=== PATIENT | male | born 1995 | race Caucasian/White ===

== ENCOUNTER 2017-12-09 09:06 | Emergency (ER) | payer OTHER ==
[~2017-12-09] VITALS: Ht 175.3 cm; Wt 73.6 kg
[2017-12-09 09:09] VITALS: BP 147/120
[2017-12-09] MEDS ORDERED: BACTRIM,SEPT1 TABLET PO (11:25)
== END 2017-12-09 11:33 | disposition home or self-care (01) ==
LOC: EME 09:06
PROC: 0H9DXZZ Drainage of Right Lower Arm Skin, External Approach (ICD-10-PCS; principal; 2017-12-09)
DX: L02.413 Cutaneous abscess of right upper limb (principal); F11.10 Opioid abuse, uncomplicated
CPT/HCPCS: 87070; 87075; 87076; 87205; 99281; 99284

== ENCOUNTER 2017-12-29 17:13 | Emergency (ER) | payer OTHER ==
[~2017-12-29] VITALS: Ht 172.7 cm; Wt 74.8 kg
[~2017-12-29 17:13] MED LIST: BACTRIM,SEPT1 TABLET PO
[2017-12-29] MEDS ORDERED: MOTRIN600 MG PO (19:38)
[2017-12-29 19:55] VITALS: BP 126/64
== END 2017-12-29 19:55 | disposition home or self-care (01) ==
LOC: EME 17:13
DX: S00.83XA Contusion of other part of head, initial encounter (principal); F17.200 Nicotine dependence, unspecified, uncomplicated
CPT/HCPCS: 70110; 99281; 99283

== ENCOUNTER 2018-04-16 20:25 | Emergency (ER) | payer OTHER ==
[~2018-04-16] VITALS: Ht 172.7 cm; Wt 72.2 kg
[~2018-04-16 20:25] MED LIST changes: +MOTRIN600 MG PO
[2018-04-16 23:12] LABS: BASOPHIL (%) 0.6 % (0-1); EOSINOPHIL (%) 4.4 % (0-5); EOSINOPHIL COUNT 0.3 K/uL (0-0.3); HEMATOCRIT 38.4 % (38.0-50.0); HEMOGLOBIN 13.4 G/DL (12.5-16.6); IMMATURE GRANULOCYTE (%) 0.1 % (0.0-0.7); LYMPHOCYTE (%) 40.7 % (15-42); LYMPHOCYTE COUNT 2.8 K/uL (1.0-2.8); MCHC 34.9 G/DL (30.0-36.0); MCV 88.9 FL (86-99); MONOCYTE (%) 13.5 % (3-12); MONOCYTE COUNT 0.9 K/uL (0-0.8); NEUTROPHIL (%) 40.7 % (45-76); NEUTROPHIL COUNT 2.8 K/uL (1.8-6.4); PLATELET COUNT 238 K/uL (156-360); RBC DIS.WIDTH-CV 13.5 % (11.8-14.6); RBC DIS.WIDTH-SD 44.1 % (39-53); RED BLOOD COUNT 4.32 M/uL (4.00-5.50); WHITE BLOOD COUNT 6.8 K/uL (4.1-10.2)
[2018-04-16 23:19] LABS: PTT 33.7 SEC (25-37)
[2018-04-16 23:22] LABS: ALBUMIN 3.8 g/dL (3.2-4.8); CHLORIDE 103 mEq/L (99-109); POTASSIUM 3.8 mEq/L (3.7-5.4); SODIUM 140 mEq/L (136-147)
[2018-04-16 23:24] LABS: GLUCOSE 121 mg/dL (70-99); TOTAL PROTEIN 6.4 g/dL (6.4-8.3)
[2018-04-16 23:28] LABS: ALKALINE PHOSPHATASE 69 IU/L (3-129); CREATININE 1.1 mg/dL (0.6-1.3); GFR ESTIMATE (CALCULATED) > 59 mL/min/ (58.99-99999)
[2018-04-16 23:29] LABS: AST (GOT) 33 IU/L (2-34); DIRECT BILIRUBIN 0.5 mg/dL (0.0-0.3)
[2018-04-16 23:30] LABS: UREA NITROGEN (BUN) 18 mg/dL (9-23)
[2018-04-16 23:31] LABS: SALICYLATE < 5.0 MG/DL (15-30)
[2018-04-16 23:32] LABS: ALT (GPT) 116 IU/L (3-49)
[2018-04-16 23:59] LABS: ACETAMINOPHEN (TYLENOL) < 10 mcg/mL (10-30)
[2018-04-17 00:55] VITALS: BP 105/90
[2018-04-20 10:31] LABS: HCV RNA (LOG IU/mL) 1.78 (())
== END 2018-04-17 00:55 | disposition home or self-care (01) ==
LOC: EME 20:25
PROVIDERS: Emergency Medicine
DX: B19.20 Unspecified viral hepatitis C without hepatic coma (principal); R74.0 Nonspecific elevation of levels of transaminase and lactic acid dehydrogenase [LDH]; E80.6 Other disorders of bilirubin metabolism; F11.11 Opioid abuse, in remission; F17.200 Nicotine dependence, unspecified, uncomplicated
CPT/HCPCS: 76705; 80053; 82248; 85025; 85610; 85730; 87522 90; 99281; 99285; G0480

== ENCOUNTER 2018-05-09 12:07 | Emergency (ER) | payer OTHER ==
[~2018-05-09] VITALS: Ht 172.7 cm; Wt 67.0 kg
[2018-05-09 13:54] LABS: HEMATOCRIT 39.4 % (38.0-50.0); HEMOGLOBIN 13.9 G/DL (12.5-16.6); MCH 30.6 PG (29.0-34.0); MCHC 35.3 G/DL (30.0-36.0); MCV 86.8 FL (86-99); PLATELET COUNT 193 K/uL (156-360); RBC DIS.WIDTH-CV 12.6 % (11.8-14.6); RBC DIS.WIDTH-SD 40.2 % (39-53); RED BLOOD COUNT 4.54 M/uL (4.00-5.50); WHITE BLOOD COUNT 9.7 K/uL (4.1-10.2)
[2018-05-09 14:02] LABS: CHLORIDE 102 mEq/L (99-109); POTASSIUM 3.7 mEq/L (3.7-5.4); SODIUM 139 mEq/L (136-147)
[2018-05-09 14:04] LABS: GLUCOSE 76 mg/dL (70-99)
[2018-05-09 14:07] LABS: SERUM ETHYL ALCOHOL < 10 mg/dL
[2018-05-09 14:08] LABS: CREATININE 1.3 mg/dL (0.6-1.3); GFR ESTIMATE (CALCULATED) > 59 mL/min/ (58.99-99999)
[2018-05-09 14:09] LABS: UREA NITROGEN (BUN) 29 mg/dL (9-23)
[2018-05-09 16:26] LABS: CREATINE KINASE 224 IU/L (1-294)
[2018-05-10 00:19] LABS: AMPHETAMINE PRESUMPTIVE POSITIVE (500 ng/mL); BARBITURATES NEGATIVE (200 ng/mL); BENZODIAZEPINES PRESUMPTIVE POSITIVE (150 ng/mL); BUPRENORPHINE NEGATIVE (10 ng/mL); COCAINE NEGATIVE (150 ng/mL); METHADONE NEGATIVE (200 ng/mL); METHAMPHETAMINE NEGATIVE (500 ng/mL); OPIATES (MORPHINE) NEGATIVE (100 ng/mL); OXYCODONE NEGATIVE (100 ng/mL); PHENCYCLIDINE NEGATIVE (25 ng/mL); PROPOXYPHENE NEGATIVE (300 ng/mL); THC CANNABINOIDS NEGATIVE (50 ng/mL); TRICYCLIC ANTIDEPRESSANTS NEGATIVE (300 ng/mL)
[2018-05-10 02:09] LABS: BENZODIAZEPINES, URINE SCREEN POSITIVE (200 ng/mL)
[2018-05-10 06:31] VITALS: BP 94/46
[2018-05-11] MEDS ORDERED: MULTI VITAMIN1 EACH PO (15:26)
[2018-05-11] MEDS ORDERED: SUBOXONE 12 MG1 EACH SL (15:32)
== END 2018-05-10 06:32 | disposition home or self-care (01) ==
LOC: EME 12:07
PROVIDERS: Emergency Medicine
DX: F15.10 Other stimulant abuse, uncomplicated (principal); R45.1 Restlessness and agitation; R00.2 Palpitations; F17.200 Nicotine dependence, unspecified, uncomplicated
CPT/HCPCS: 80048; 82550; 84999; 85027; 90837; 99281; 99285; G0480; J1200; J1630; J2060

== ENCOUNTER 2018-05-11 11:34 | Inpatient (IN) | payer OTHER ==
[~2018-05-11] VITALS: Ht 172.7 cm; Wt 71.3 kg
[2018-05-11 11:55] LABS: HEMATOCRIT 45.2 % (38.0-50.0); HEMOGLOBIN 15.5 G/DL (12.5-16.6); MCH 30.8 PG (29.0-34.0); MCHC 34.3 G/DL (30.0-36.0); MCV 89.7 FL (86-99); PLATELET COUNT 213 K/uL (156-360); RED BLOOD COUNT 5.04 M/uL (4.00-5.50); WHITE BLOOD COUNT 9.5 K/uL (4.1-10.2)
[2018-05-11 12:03] LABS: APPEARANCE CLEAR ((CLEAR)); BILIRUBIN NEGATIVE; BLOOD MODERATE; COLOR YELLOW ((YELLOW)); GLUCOSE (STRIP) NEGATIVE; KETONES NEGATIVE; LEUKOCYTES NEGATIVE; NITRITE NEGATIVE; PROTEIN (STRIP) NEGATIVE; SPECIFIC GRAVITY 1.015 (1.000-1.030)
[2018-05-11 12:08] LABS: BACTERIA NONE SEEN /HPF; EPITHELIAL CELLS NONE SEEN /HPF; MUCUS TRACE /LPF; RED BLOOD CELLS TNTC /HPF (0-5); UCUL ADDED? YES; WHITE BLOOD CELLS 0-5 /HPF (0-5)
[2018-05-11 12:10] LABS: COCAINE NEGATIVE (150 ng/mL); METHAMPHETAMINE PRESUMPTIVE POSITIVE (500 ng/mL); OPIATES (MORPHINE) NEGATIVE (100 ng/mL); PHENCYCLIDINE NEGATIVE (25 ng/mL); THC CANNABINOIDS NEGATIVE (50 ng/mL)
[2018-05-11 12:11] LABS: AMPHETAMINE PRESUMPTIVE POSITIVE (500 ng/mL); BARBITURATES NEGATIVE (200 ng/mL); BENZODIAZEPINES PRESUMPTIVE POSITIVE (150 ng/mL); BUPRENORPHINE NEGATIVE (10 ng/mL); METHADONE NEGATIVE (200 ng/mL); OXYCODONE NEGATIVE (100 ng/mL); PROPOXYPHENE NEGATIVE (300 ng/mL); TRICYCLIC ANTIDEPRESSANTS NEGATIVE (300 ng/mL)
[2018-05-11 12:11] LABS: ALBUMIN 4.3 g/dL (3.2-4.8); CHLORIDE 103 mEq/L (99-109); SODIUM 137 mEq/L (136-147)
[2018-05-11 12:13] LABS: TOTAL PROTEIN 7.3 g/dL (6.4-8.3)
[2018-05-11 12:15] LABS: TOTAL BILIRUBIN 0.6 mg/dL (0.0-1.0)
[2018-05-11 12:17] LABS: GFR ESTIMATE (CALCULATED) > 59 mL/min/ (58.99-99999); SERUM ETHYL ALCOHOL < 10 mg/dL
[2018-05-11 12:18] LABS: ALKALINE PHOSPHATASE 72 IU/L (3-129); AST (GOT) 365 IU/L (2-34); GLUCOSE 129 mg/dL (70-99); POTASSIUM 4.8 mEq/L (3.7-5.4)
[2018-05-11 12:19] LABS: UREA NITROGEN (BUN) 12 mg/dL (9-23)
[2018-05-11 12:20] LABS: SALICYLATE < 5.0 MG/DL (15-30); TROP-I INTERPRETATION NEGATIVE; TROPONIN-I < 0.01 ng/mL (0.0-0.30)
[2018-05-11 12:21] LABS: ACETAMINOPHEN (TYLENOL) < 10 mcg/mL (10-30); ALT (GPT) 672 IU/L (3-49)
[2018-05-11 12:35] LABS: CREATINE KINASE 3772 IU/L (1-294)
[2018-05-11 12:49] LABS: BENZODIAZEPINES, URINE SCREEN Negative (200 ng/mL)
[2018-05-11] MEDS ORDERED: MULTI VITAMIN1 EACH PO (15:26)
[2018-05-11] MEDS ORDERED: SUBOXONE 12 MG1 EACH SL (15:32)
[2018-05-11 16:40] VITALS: BP 128/70
[2018-05-11 20:01] VITALS: BP 121/60
[2018-05-12 00:11] VITALS: BP 115/56
[2018-05-12 04:50] VITALS: BP 123/67
[2018-05-12 06:06] LABS: ALBUMIN 3.3 G/DL (3.2-4.8); ALKALINE PHOSPHATASE 56 IU/L (3-129); ALT (GPT) 435 IU/L (3-49); AST (GOT) 214 IU/L (2-34); CHLORIDE 105 MEQ/L (99-109); CREATININE 0.9 MG/DL (0.6-1.3); DIRECT BILIRUBIN 0.1 mg/dL (0.0-0.3); GFR ESTIMATE (CALCULATED) > 59 mL/min/ (58.99-99999); SODIUM 138 MEQ/L (136-147); TOTAL BILIRUBIN 0.4 MG/DL (0.0-1.0); TOTAL PROTEIN 5.7 G/DL (6.4-8.3); UREA NITROGEN (BUN) 12 mg/dL (9-23)
[2018-05-12 06:10] LABS: GLUCOSE 86 mg/dL (70-99)
[2018-05-12 06:11] LABS: CREATINE KINASE 1195 IU/L (1-294); POTASSIUM 3.8 MEQ/L (3.7-5.4)
[2018-05-12 06:19] LABS: HEMATOCRIT 40.1 % (38.0-50.0); MCH 30.4 PG (29.0-34.0); MCHC 33.7 G/DL (30.0-36.0); MCV 90.3 FL (86-99); PLATELET COUNT 182 K/uL (156-360); RBC DIS.WIDTH-CV 12.9 % (11.8-14.6); RBC DIS.WIDTH-SD 42.5 % (39-53); RED BLOOD COUNT 4.44 M/uL (4.00-5.50); WHITE BLOOD COUNT 7.4 K/uL (4.1-10.2)
[2018-05-12 06:28] LABS: HEMOGLOBIN 13.5 G/DL (12.5-16.6)
[2018-05-12 07:43] VITALS: BP 118/67
[2018-05-12 10:14] LABS: HEPATITIS B SURFACE ANTIGEN Nonreactive
[2018-05-12 10:15] LABS: ANTI-HEPATITIS A VIRUS (IGM) Nonreactive
[2018-05-12 11:26] VITALS: BP 133/66
[2018-05-12 13:16] LABS: ANTI-HEPATITIS B CORE (IGM) REACTIVE; HEPATITIS C ANTIBODY REACTIVE
== END 2018-05-12 14:05 | disposition left against medical advice (07) | DRG 558 ==
LOC: EME → EDBD 11:34 → EME 11:34 → ENRESERV 15:15 → EDOF 15:15 → 4SOUTH 16:01
PROVIDERS: Emergency Medicine; Hospitalist
DX: M62.82 Rhabdomyolysis (principal); F15.10 Other stimulant abuse, uncomplicated; G24.9 Dystonia, unspecified; R74.0 Nonspecific elevation of levels of transaminase and lactic acid dehydrogenase [LDH]; R79.89 Other specified abnormal findings of blood chemistry; B19.20 Unspecified viral hepatitis C without hepatic coma; F17.200 Nicotine dependence, unspecified, uncomplicated; Z62.810 Personal history of physical and sexual abuse in childhood; Z59.0 Homelessness
CPT/HCPCS: 71045; 76705; 80048; 80053; 80074; 80076; 81003; 82550; 82550 91; 84484; 84999; 85027; 87086; 90839; 93005; 99281; 99285; G0378; G0480; J1200; J1644; J2060; J7030; J7040

== ENCOUNTER 2018-05-18 18:07 | Emergency (ER) | payer OTHER ==
[~2018-05-18] VITALS: Ht 172.7 cm; Wt 63.3 kg
[~2018-05-18 18:07] MED LIST changes: +MULTI VITAMIN1 EACH PO; +SUBOXONE 12 MG1 EACH SL
[2018-05-18 19:21] LABS: HEMATOCRIT 42.5 % (38.0-50.0); HEMOGLOBIN 14.9 G/DL (12.5-16.6); MCH 30.5 PG (29.0-34.0); MCHC 35.1 G/DL (30.0-36.0); MCV 86.9 FL (86-99); PLATELET COUNT 227 K/uL (156-360); RBC DIS.WIDTH-CV 12.8 % (11.8-14.6); RBC DIS.WIDTH-SD 40.6 % (39-53); RED BLOOD COUNT 4.89 M/uL (4.00-5.50); WHITE BLOOD COUNT 10.3 K/uL (4.1-10.2)
[2018-05-18 19:30] LABS: CHLORIDE 101 mEq/L (99-109); POTASSIUM 3.8 mEq/L (3.7-5.4); SODIUM 139 mEq/L (136-147)
[2018-05-18 19:31] LABS: GLUCOSE 126 mg/dL (70-99)
[2018-05-18 19:34] LABS: SERUM ETHYL ALCOHOL < 10 mg/dL
[2018-05-18 19:35] LABS: CREATININE 1.3 mg/dL (0.6-1.3); GFR ESTIMATE (CALCULATED) > 59 mL/min/ (58.99-99999)
[2018-05-18 19:38] LABS: UREA NITROGEN (BUN) 32 mg/dL (9-23)
[2018-05-19 07:08] VITALS: BP 113/58
== END 2018-05-19 07:09 | disposition home or self-care (01) ==
LOC: EME 18:07
PROVIDERS: Emergency Medicine Emergency Medical Services
DX: F15.20 Other stimulant dependence, uncomplicated (principal); R45.1 Restlessness and agitation; R45.6 Violent behavior; F22 Delusional disorders; F17.200 Nicotine dependence, unspecified, uncomplicated
CPT/HCPCS: 80048; 85027; 90839; 99281; 99284; G0480; J1630; J2060

== ENCOUNTER 2018-05-20 09:37 | Emergency (ER) | payer OTHER ==
[~2018-05-20] VITALS: Ht 172.7 cm; Wt 68.2 kg
[2018-05-20 10:13] LABS: HEMATOCRIT 42.4 % (38.0-50.0); HEMOGLOBIN 14.2 G/DL (12.5-16.6); MCH 30.3 PG (29.0-34.0); MCHC 33.5 G/DL (30.0-36.0); MCV 90.6 FL (86-99); PLATELET COUNT 191 K/uL (156-360); RBC DIS.WIDTH-CV 13.1 % (11.8-14.6); RED BLOOD COUNT 4.68 M/uL (4.00-5.50); WHITE BLOOD COUNT 6.4 K/uL (4.1-10.2)
[2018-05-20 10:24] LABS: ALBUMIN 3.9 g/dL (3.2-4.8); CHLORIDE 101 mEq/L (99-109); SODIUM 137 mEq/L (136-147)
[2018-05-20 10:26] LABS: GLUCOSE 111 mg/dL (70-99); POTASSIUM 4.6 mEq/L (3.7-5.4)
[2018-05-20 10:27] LABS: TOTAL PROTEIN 6.7 g/dL (6.4-8.3)
[2018-05-20 10:28] LABS: TOTAL BILIRUBIN 0.8 mg/dL (0.0-1.0)
[2018-05-20 10:29] LABS: SERUM ETHYL ALCOHOL < 10 mg/dL
[2018-05-20 10:30] LABS: ALKALINE PHOSPHATASE 84 IU/L (3-129); GFR ESTIMATE (CALCULATED) > 59 mL/min/ (58.99-99999)
[2018-05-20 10:31] LABS: UREA NITROGEN (BUN) 21 mg/dL (9-23)
[2018-05-20 10:32] LABS: AST (GOT) 519 IU/L (2-34)
[2018-05-20 10:34] LABS: ALT (GPT) 1279 IU/L (3-49)
[2018-05-20 11:23] LABS: ACETAMINOPHEN (TYLENOL) < 10 mcg/mL (10-30); CREATINE KINASE 145 IU/L (1-294)
[2018-05-20 14:02] LABS: HEPATITIS B SURFACE ANTIGEN Nonreactive
[2018-05-20 14:03] LABS: ANTI-HEPATITIS A VIRUS (IGM) Nonreactive
[2018-05-20 14:18] LABS: ANTI-HEPATITIS B CORE (IGM) REACTIVE; HEPATITIS C ANTIBODY REACTIVE
[2018-05-20 15:55] VITALS: BP 128/75
== END 2018-05-20 16:17 | disposition home or self-care (01) ==
LOC: EME 09:37
PROVIDERS: Emergency Medicine
DX: F15.20 Other stimulant dependence, uncomplicated (principal); B19.20 Unspecified viral hepatitis C without hepatic coma; F32.9 Major depressive disorder, single episode, unspecified; Z04.6 Encounter for general psychiatric examination, requested by authority; F17.200 Nicotine dependence, unspecified, uncomplicated
CPT/HCPCS: 80053; 80074; 81003; 82550; 85027; 85610; 86705; 86709; 86803; 87340; 90837; 99281; 99285; G0480; J1200; J2060